=== PATIENT | female | born 1955 | race Caucasian/White ===

== ENCOUNTER 2016-10-23 15:00 | Inpatient (IN) | payer OTHER ==
--- NOTE | ~2016-10-23 | PN ---
Unit #: [id number] #: [id number] Patient: VICKI SALAS [id number] [facility] [address] [place] [address] [id number] MR#: [id number] NAME: VICKI SALAS ROOM: P110 Age: 60 Sex: F Admission Date: 10/24/2016 : 1955 Attending Physician: Carlos Neves M.D. Admitting Physician: Carlos Neves M.D. Primary Care Physician: Primary Care Physician Anh CAZARES PROGRESS NOTES DATE 10/26/2016 DISCUSSION The patient reports that she slept well last evening with initiation of trazodone. She seems brighter today but is requesting medical consult related to sutures in her knees where she recently had surgery. She is also complaining of some hearing loss in her left side and may need to explore this. She is reporting some improvement in mood and reports that she is unsure where she will go once leaving the hospital. Dictated by... Carlos Neves M.D. CB/angle TD: 10/26/2016 19:41 JOB #: [id number] [facility] DOMINGUEZ NOTES Page 1 of 1 X Carlos Neves MD PROGRESS NOTE
--- NOTE | ~2016-10-23 | CO ---
Unit #: [id number] #: [id number] Patient: VICKI SALAS [id number] [place] [address] [id number] I MR#: [id number] NAME: VICKI SALAS ROOM: P110 Age: 60 Sex: F Admission Date: 10/24/2016 : 1955 Attending Physician: Carlos Neves M.D. Primary Care Physician: Primary Care Physician No Consultation Date: 10/26/2016 CONSULTATION REPORT SUBJECTIVE Vicki is a 60-year-old admitted because of her erratic behavior. Some weeks prior to admission, she underwent arthroscopic surgery of the left knee. She still has 3, maybe [address] I had spoken with the patient at time of admission and instructed her to follow up with the orthopedic surgeon for removal of her sutures. At time of exam, the surgical sites were clean. There was very good skin approximation and a nice scab formation. She had minimal effusion noted in the knee. Dictated by... Monique Barnes P.A.-C. for Anya Ortiz/yuliet TD: 10/29/2016 01:50 JOB #: [id number] CONSULTATION REPORT Page 1 of 1 X Monique Barnes CONSULTATION REPORT
--- NOTE | ~2016-10-23 | DS ---
Unit #: [id number] #: [id number] Patient: VICKI SALAS [id number] [facility] [address] [place] [address] [id number] I MR#: [id number] NAME: VICKI SALAS ROOM: P110 Age: 60 Sex: F Admission Date: 10/24/2016 : 1955 Discharge Date: 10/29/2016 Attending Physician: Carlos Neves M.D. Primary Care Physician: Primary Care Physician No DISCHARGE SUMMARY REASON FOR ADMISSION The patient is a 60-year-old white female, admitted to the [address] [place] [address] unit with increasing suicidal thinking. CHIEF COMPLAINT None given. INFORMANTS The patient and the patient's reliability is fair. HISTORY OF PRESENT ILLNESS The patient is a 60-year-old, single, white female, admitted to the [address] [place] [address] unit after she presented to [facility] voicing positive suicidal ideation. HOSPITAL COURSE The patient was admitted to the [facility] unit and placed on suicide precautions. Old records from [facility] were reviewed at this time. The patient does not in fact have a schizophrenic illness that she had claimed, but does in fact suffered from depression. The patient was continued on Celexa 20 mg daily and trazodone 50 mg at h.s. was added. The patient was otherwise pleasant and cooperative, interactions with peers and staff. She showed slow, but steady improvement. By 10/29/2016, the patient was in bright spirits and discharge was ordered to take place the following day. FINAL DIAGNOSES Major depressive disorder, recurrent, moderate; status post knee surgery; hypertension; gastroesophageal reflux disease; vitamin D deficiency; chronic obstructive pulmonary disease. DISPOSITION ON DISCHARGE The patient was discharged on the following medications: Zestril 2.5 mg daily for hypertension, rifaximin 500 mg b.i.d. for anticoagulation, Flonase 2 sprays once daily for environmental allergies, Claritin 10 mg once daily for environmental allergies, Coreg 3.125 mg b.i.d. for hypertension, Protonix 40 mg daily for GERD, Celexa 20 mg daily for depression, vitamin D 1000 units once daily for vitamin D supplementation, Mag-Ox 400 mg once daily for magnesium supplementation, Bumex 1 mg once daily for hypertension, Symbicort 2 puffs b.i.d. for shortness of air, Aldactone 25 mg once daily for hypertension, ketotifen 1 drop b.i.d. for glaucoma, and Desyrel 50 mg at h.s. p.r.n. insomnia. Unit #: [id number] #: [id number] Patient: VICKI SALAS DISCHARGE INSTRUCTIONS No dietary or physical restrictions were placed upon the patient at the time of discharge. FOLLOWUP She will follow up through the auspices of community mental health resources in the [facility]. PROGNOSIS Her prognosis is considered fair. Dictated by... Carlos Neves M.D. CB/yuliet TD: 10/29/2016 16:25 JOB #: [id number] DISCHARGE SUMMARY Page 1 of 1 X Carlos Neves MD X DISCHARGE SUMMARY
--- NOTE | ~2016-10-23 | PN ---
Unit #: [id number] #: [id number] Patient: VICKI SALAS [id number] [facility] [address] [place] [address] [id number] I MR#: [id number] NAME: VICKI SALAS ROOM: P110 Age: 60 Sex: F Admission Date: 10/24/2016 : 1955 Attending Physician: Carlos Neves M.D. Admitting Physician: Carlos Neves M.D. Primary Care Physician: Primary Care Physician Anh CAZARES PROGRESS NOTES DATE 10/25/2016 DISCUSSION The patient is pleasant and cooperative today. Review of the patient's chart from [facility] does not indicate the presence of any schizophrenic illness, hence we will not initiate any medication related thereto. The patient does appear to have a history of somewhat protracted hospital stays requesting from this physician that she be allowed to remain in the hospital "until next Saturday." Her expectations of inpatient care are gently redirected. Dictated by... Carlos Neves M.D. CB/angle TD: 10/25/2016 15:52 JOB #: [id number] [facility] PROGRESS NOTES Page 1 of 1 X Carlos Neves MD PROGRESS NOTE
--- NOTE | ~2016-10-23 | PA ---
Unit #: [id number] #: [id number] Patient: VICKI SALAS [id number] [place] [address] [id number] MR#: [id number] NAME: VICKI SALAS. ROOM: P110 Age: 60 Sex: F Admission Date: 10/24/2016 : 1955 Date of Assessment: 10/24/2016 Attending Physician: Carlos Neves M.D. Admitting Physician: Carlos Neves M.D. Primary Care Physician: Primary Care Physician No PSYCHIATRIC ASSESSMENT IDENTIFYING INFORMATION The patient is a 60-year-old white female admitted in transfer from [facility] where she had presented voicing positive suicidal ideation. CHIEF COMPLAINT "My mom has got dementia." INFORMANT Patient, reliability is fair. HISTORY OF PRESENT ILLNESS The patient is a 60-year-old white female admitted in transfer from [facility]. She had been taken there from her primary care physician's office after she had voiced positive suicidal ideation with plan to shoot herself. The patient does apparently have access to weapons. The patient reports that she lives with her mother who suffers from fairly advanced Alzheimer disease and reports to quarrel frequently. The chart indicates a history of treatment for schizophrenia, and the patient reports she has been on Haldol in the past, but the patient is currently on no antipsychotic medication per the chart. She was recently started on citalopram. Other stressors include financial stressors and recent knee surgery. The patient currently reports positive suicidal ideation and complains of dysphoric mood, poor sleep, and recent weight loss of about 30 pounds secondary to loss of appetite. She was most recently hospitalized at [facility], and we will seek old records from there. PAST PSYCHIATRIC HISTORY As above. PAST MEDICAL HISTORY Significant for a history of GERD, hypertension, and environmental allergies and COPD. MEDICAL HISTORY Zaditor, spironolactone, Budesonide, Formoterol, lisinopril, Xifaxan, Fluticasone, cetirizine, carvedilol, pantoprazole, citalopram, vitamin D, mag oxide, bumetanide. ALLERGIES None. Unit #: [id number] #: [id number] Patient: VICKI SALAS FAMILY HISTORY The patient's mother suffers from dementia. SOCIAL HISTORY The patient is considered disabled possibly secondary to schizophrenia. She reports no use of alcohol or street drugs. MENTAL STATUS EXAMINATION Examination at this time reveals the patient to be a well-developed well-nourished white female appearing stated age. She is in no apparent physical distress at the time of examination. She is awake, alert, and oriented in all spheres. Her mood is dysphoric, her affect blunted and strange. Speech is impoverished but generally well coherent. There are no gross deficits in memory or cognition noted. Intelligence is judged to be in the average range based on fund of knowledge. The patient is generally cooperative during interview. She is currently endorsing positive suicidal ideation. She denies homicidal ideation. She does report positive auditory hallucinations. Her judgment and insight appear to be somewhat impaired. ASSETS AND LIABILITIES The patient's assets are to be assessed. Liabilities: Lack of resources, failing health. DIAGNOSTIC IMPRESSION 1. Schizoaffective disorder. 2. Environmental allergies. 3. Gastroesophageal reflux disease. 4. Hypertension. TREATMENT PLAN The patient remains hospitalized for safety and stabilization. We will seek old records from [facility] to see what if any second-generation antipsychotics the patient may obtain in the past, and we will continue her trial of citalopram. Suicide precautions remain in place. ESTIMATED LENGTH OF STAY 5 to 7 days. Dictated by... Carlos Neves M.D. RADHA/patrice TD: 10/24/2016 13:50 JOB #: [id number] Unit #: [id number] #: [id number] Patient: VICKI SALAS PSYCHIATRIC ASSESSMENT Page 1 of 1 X Carlos Neves MD PSYCHIATRIC ASSESSMENT
--- NOTE | ~2016-10-23 | PN ---
Unit #: [id number] #: [id number] Patient: VICKI SALAS [id number] [facility] [address] [place] [address] [id number] MR#: [id number] NAME: VICKI SALAS ROOM: [facility] Age: 60 Sex: F Admission Date: 10/24/2016 : 1955 Attending Physician: Carlos Neves M.D. Admitting Physician: Carlos Neves M.D. Primary Care Physician: Primary Care Physician Anh CAZARES PROGRESS NOTES DATE 10/28/2016 DISCUSSION The patient seems brighter today and states that she is sleeping well. She is beginning to push for discharge and should she sustain progress it will likely take place tomorrow. Dictated by... Carlos Neves M.D. CB/maira TD: 10/29/2016 04:22 JOB #: [id number] [facility] PROGRESS NOTES Page 1 of 1 X Cralos Neves MD X PROGRESS NOTE
--- NOTE | ~2016-10-23 | HP ---
Unit #: [id number] #: [id number] Patient: VICKI SALAS [id number] [place] [address] [id number] I MR#: [id number] NAME: VICKI SALAS. ROOM: P110 Age: 60 Sex: F Admission Date: 10/24/2016 : 1955 Attending Physician: Carlos Neves M.D. Admitting Physician: Carlos Neves M.D. Primary Care Physician: Primary Care Physician No HISTORY AND PHYSICAL HISTORY OF PRESENT ILLNESS Vicki is a 60 year old admitted to [address] [place] [address] with erratic behavior. PAST MEDICAL HISTORY 1. Diabetes mellitus. 2. Fatty liver. 3. History of kidney stones. 4. High blood pressure. 5. History of endometrial carcinoma. PAST SURGICAL HISTORY 1. Left knee. 2. Hysterectomy. ALLERGIES She has multiple allergies which include penicillin, sulfa, iodine, morphine, codeine, Lasix, Macrobid, metformin. SOCIAL HISTORY She denies cigarettes, alcohol and illicit drug use. FAMILY HISTORY Medically noncontributory. REVIEW OF SYSTEMS CONSTITUTIONAL: No fever or chills. HEENT: Denies any sore throat, ear pain or runny nose. CARDIOVASCULAR: Denies chest pain, irregular heart rhythm or palpitations. CHEST: Denies shortness of breath or cough. No hemoptysis. GASTROINTESTINAL: Denies nausea, vomiting, diarrhea or chronic constipation. ENDOCRINE: Denies history of increased thirst or urination. No recent significant weight loss or gain. GENITOURINARY: Denies dysuria, frequency, or hematuria. SKIN: Denies any rashes. HEMATOLOGIC: Denies history of increased bleeding or bruising. MUSCULOSKELETAL: Denies any hot, swollen joints. No generalized muscle pain. NEUROLOGIC: Denies problems with vision or speech. No frequent, severe headaches. No numbness, tingling or weakness in any extremities. Denies loss of bladder or bowel control. CURRENT MEDICATIONS Unit #: [id number] #: [id number] Patient: VICKI SALAS 1. Spironolactone 25 mg daily. 2. Symbicort b.i.d. 3. Lisinopril 2.5 mg daily. 4. Xifaxan 550 mg b.i.d. 5. Flonase nasal spray daily. 6. Claritin 10 mg daily. 7. Coreg 3.125 mg b.i.d. 8. Protonix 40 mg daily. 9. Celexa 20 mg daily. 10. Mag-Ox 400 mg 1 p.o. daily. 11. Bumex 1 mg daily. 12. Zaditor 1 drop eye b.i.d. PHYSICAL EXAMINATION GENERAL: Alert, well-nourished, in no apparent distress. VITAL SIGNS: Blood pressure 120/56, heart rate 80, respirations 16, temperature 98.6. WEIGHT: 173. HEIGHT: 5 feet 4 inches. SKIN: Warm and dry without rash or lesion. HEENT: Normocephalic. TMs not viewed. Oral and nasal passages clear. Conjunctivae clear. PERRLA. EOMs intact. NECK: Supple without lymphadenopathy or thyromegaly. HEART: Regular rate and rhythm without murmur. LUNGS: Clear. ABDOMEN: Soft, nontender. : Not done. EXTREMITIES: No evidence of cyanosis, clubbing or edema. Moves all without focal deficit. NEUROLOGICAL: Grossly within normal limits. Cranial Nerves: II: Visual pablo are intact. III, IV AND : Extraocular movements are intact. Pupils are equal, round and reactive to light. V: Facial sensation is grossly normal. VII: Facial movements and expression are normal. VIII: Auditory acuity grossly intact. IX, X: Uvula is midline. Phonation is normal. XI: Patient shrugs shoulders and turns head normally. XII: Tongue protrudes in the midline. Sensory and Motor Function: Sensory and motor sensation is grossly normal. Motor: moves all extremities well. Coordination: Gait is normal. Deep Tendon Reflexes: Intact. IMPRESSION Psychiatric admission. RECOMMENDATIONS PSYCHIATRIC: Per psychiatrist. MEDICAL: See no contraindications to participate in facility's activities. MEDICAL PROGNOSIS Good. MEDICAL CONDITION Stable. Dictated by... Unit #: [id number] #: [id number] Patient: VICKI SALAS Tej AugusteAAlejandro-Nicole. for Anya Ortiz/angle TD: 10/24/2016 22:54 JOB #: [id number] HISTORY AND PHYSICAL Page 1 of 1 X Monique Barnes HISTORY AND PHYSICAL
--- NOTE | ~2016-10-23 | PN ---
Unit #: [id number] #: [id number] Patient: VICKI SALAS [id number] [facility] [address] [place] [address] [id number] MR#: [id number] NAME: VICKI SALAS ROOM: P110 Age: 60 Sex: F Admission Date: 10/24/2016 : 1955 Attending Physician: Carlos Neves M.D. Admitting Physician: Carlos Neves M.D. Primary Care Physician: Primary Care Physician Anh CAZARES PROGRESS NOTES DATE 10/27/2016 DISCUSSION The patient is active within therapeutic milieu. She does complain of bottom scrubber awakening this morning stating that she was excite about her parents' visit. Her mood seems brighter, and we look to be moving towards discharge as the patient is reporting improvement in mood and reduction in suicidal ideation. Dictated by... Carlos Neves M.D. CB/bzkarsten TD: 10/27/2016 14:22 JOB #: [id number] [facility] PROGRESS NOTES Page 1 of 1 X Carlos Neves MD PROGRESS NOTE
== END 2016-10-29 15:47 | disposition home or self-care (01) | DRG 885 ==
LOC: P1S 15:00
DX: F25.9 Schizoaffective disorder, unspecified (principal); E11.9 Type 2 diabetes mellitus without complications; I10 Essential (primary) hypertension; K21.9 Gastro-esophageal reflux disease without esophagitis; J44.9 Chronic obstructive pulmonary disease, unspecified; Z88.5 Allergy status to narcotic agent; Z88.2 Allergy status to sulfonamides; Z88.8 Allergy status to other drugs, medicaments and biological substances; S81.002D Unspecified open wound, left knee, subsequent encounter